=== PATIENT | male | born 1950 | race Caucasian/White ===

== ENCOUNTER 2019-08-26 14:19 | Emergency (ER) | payer OTHER ==
[~2019-08-26] VITALS: Wt 88.5 kg
[~2019-08-26 14:19] MED LIST: ALDACTONE25 MG PO; AMITRIPTYLINE10 MG PO; ASPIRIN ADULT L81 M1 PO; ATENOLOL100 M1 PO; B-1100 M1 PO; HYCODAN/HYDROMET5 ML PO; IBU800 MG PO; ISOSORBIDE DINI30 MG PO; LIPITOR80 MG PO; NORVASC10 MG PO; PRINIVIL20 M1 PO; PROAIR HFA8.5 GM INH; RANITIDINE HCL150 M1 PO; VITAMINS FOR HA1 CAP PO
[2019-08-26 14:44] LABS: BASO # 0.1 10*3/uL (0.0-0.1); BASO % 0.5 % (0.0-1.0); EOS # 0.2 10*3/uL (0.0-0.4); EOS % 2.1 % (1.0-4.0); HEMATOCRIT 38.8 % (42.0-52.0); HEMOGLOBIN 13.6 g/dl (14.0-18.0); LYMPH # 1.9 10*3/uL (1.3-4.4); LYMPH % 18.1 % (27.0-41.0); MEAN CELL VOLUME 105.4 fl (80.0-94.0); MEAN CORPUSCULAR HGB CONC 35.1 g/dl (33.0-37.0); MEAN PLATELET VOLUME 9.9 fl (9.6-12.3); MONO # 0.8 10*3/uL (0.1-1.0); MONO % 7.4 % (3.0-9.0); NEUT # 7.3 10*3/uL (2.3-7.9); NEUT % 71.4 % (47.0-73.0); PLATELET COUNT AUTOMATED 241 10*3/uL (130-400); RED BLOOD COUNT 3.68 10*6/uL (4.50-5.90); RED CELL DISTRI WIDTH 13.4 % (0-14.5); WHITE BLOOD COUNT 10.3 10*3/uL (4.8-10.8)
[2019-08-26 14:56] LABS: ACT PARTIAL THROMBO TIME 25.5 SECONDS (20.0-32.1); INTERNATIONAL NORM RATIO 0.9 (2.0-3.5)
[2019-08-26 15:02] LABS: ALBUMIN 3.2 gm/dl (3.1-4.5); ALKALINE PHOSPHATASE 96 U/L (45-117); BUN 17 mg/dl (7-24); CHLORIDE 107 mmol/L (98-107); CREATININE 1.24 mg/dL (0.70-1.30); POTASSIUM 3.8 mmol/L (3.5-5.1); SGOT/AST 34 IU/L (3-35); SGPT/ALT 41 U/L (12-78); SODIUM 141 mmol/L (136-145); TOTAL PROTEIN 6.4 gm/dL (6.4-8.2)
[2019-08-26 15:03] LABS: TROPONIN I < 0.015 ng/ml (<0.045)
== END 2019-08-26 16:51 | disposition left against medical advice (07) ==
LOC: ED 14:19
PROVIDERS: Emergency Medicine
DX: R55 Syncope and collapse (principal); R42 Dizziness and giddiness; R07.89 Other chest pain; I10 Essential (primary) hypertension; E78.5 Hyperlipidemia, unspecified; Z79.899 Other long term (current) drug therapy; Z79.82 Long term (current) use of aspirin

== ENCOUNTER 2020-12-02 11:13 | Emergency (ER) | payer OTHER ==
[~2020-12-02] VITALS: Ht 180.3 cm
[2020-12-02 11:46] LABS: HEMATOCRIT 37.2 % (42.0-52.0); MEAN CORPUSCULAR HGB 39.8 pg (27.0-31.0); MEAN CORPUSCULAR HGB CONC 35.5 g/dl (33.0-37.0); MEAN PLATELET VOLUME 10.3 fl (9.6-12.3); PLATELET COUNT AUTOMATED 236 10*3/uL (130-400); RED BLOOD COUNT 3.32 10*6/uL (4.50-5.90); RED CELL DISTRI WIDTH 13.2 % (0-14.5); WHITE BLOOD COUNT 6.9 10*3/uL (4.8-10.8)
[2020-12-02 12:07] LABS: BASOPHILS 1 % (0-1); PLATELET SUFFICIENCY NORMAL (NORMAL); TOTAL CELLS COUNTED 100 #CELLS
[2020-12-02 12:10] LABS: BUN 8 mg/dl (7-24); CHLORIDE 106 mmol/L (98-107); CREATININE 0.68 mg/dL (0.70-1.30); POTASSIUM 3.2 mmol/L (3.5-5.1); SODIUM 141 mmol/L (136-145)
[2020-12-02 12:11] LABS: ALBUMIN 2.5 gm/dl (3.1-4.5); ALKALINE PHOSPHATASE 142 U/L (45-117); ETHYL ALCOHOL < 3.0 mg/dl (<3); SGOT/AST 65 IU/L (3-35); SGPT/ALT 66 U/L (12-78); TROPONIN I 0.044 ng/ml (<0.045)
[2020-12-02 13:32] LABS: URINE AMPHETAMINES < 1000 (1000ng/ml); URINE BARBITURATES < 200 (200ng/ml); URINE BENZODIAZEPINES < 200 (200ng/ml); URINE CANNABINOIDS (THC) > 50 (50ng/ml); URINE COCAINE < 300 (300ng/ml); URINE METHADONE < 300 (300ng/ml); URINE OPIATES < 300 (300ng/ml)
[2020-12-02 13:36] LABS: URINE PHENCYCLIDINE < 25 (25ng/ml)
== END 2020-12-02 15:40 | disposition home or self-care (01) ==
LOC: ED 11:13
PROVIDERS: Family Medicine
DX: S02.85XA Fracture of orbit, unspecified, initial encounter for closed fracture (principal); R55 Syncope and collapse; Z79.899 Other long term (current) drug therapy; Z79.82 Long term (current) use of aspirin; Z95.1 Presence of aortocoronary bypass graft; X58.XXXA Exposure to other specified factors, initial encounter; Y93.89 Activity, other specified; Y92.89 Other specified places as the place of occurrence of the external cause; Y99.8 Other external cause status

== ENCOUNTER 2021-04-28 15:01 | Inpatient (IN) | payer OTHER ==
[~2021-04-28] VITALS: Ht 177.8 cm; Wt 73.2 kg
[~2021-04-28 15:01] MED LIST changes: -ELIQUIS5 M1 PO; -PANTOPRAZOLE SO40 MG PO
[2021-04-28 15:19] VITALS: BP 147/82
[2021-04-28 16:27] LABS: HEMATOCRIT 36.8 % (42.0-52.0); MEAN CELL VOLUME 109.5 fl (80.0-94.0); MEAN CORPUSCULAR HGB 37.2 pg (27.0-31.0); MEAN PLATELET VOLUME 11.1 fl (9.6-12.3); PLATELET COUNT AUTOMATED 170 10*3/uL (130-400); RED BLOOD COUNT 3.36 10*6/uL (4.50-5.90); RED CELL DISTRI WIDTH 14.2 % (0-14.5); WHITE BLOOD COUNT 7.6 10*3/uL (4.8-10.8)
[2021-04-28 16:45] LABS: ACT PARTIAL THROMBO TIME 28.7 SECONDS (20.0-32.1); INTERNATIONAL NORM RATIO 1.1 (2.0-3.5)
[2021-04-28 16:49] LABS: ALBUMIN 2.5 gm/dl (3.1-4.5); ALKALINE PHOSPHATASE 109 U/L (45-117); BUN 8 mg/dl (7-24); CHLORIDE 108 mmol/L (98-107); CREATININE 0.67 mg/dL (0.70-1.30); SGOT/AST 28 IU/L (3-35); SGPT/ALT 18 U/L (12-78); SODIUM 142 mmol/L (136-145); TOTAL PROTEIN 5.5 gm/dL (6.4-8.2)
[2021-04-28 17:07] LABS: BASOPHILS 1 % (0-1); PLATELET SUFFICIENCY NORMAL (NORMAL); TOTAL CELLS COUNTED 100 #CELLS
[2021-04-28 17:08] LABS: OVALOCYTES FEW
[2021-04-28 18:41] VITALS: BP 157/92
[2021-04-28] MEDS ORDERED: PANTOPRAZOLE SO40 MG PO (19:52)
[2021-04-28 22:32] VITALS: BP 133/92
[2021-04-29] VITALS: BP 134/59
[2021-04-29 08:00] VITALS: BP 122/86
[2021-04-29 08:11] LABS: HEMATOCRIT 37.1 % (42.0-52.0); MEAN CELL VOLUME 110.1 fl (80.0-94.0); MEAN CORPUSCULAR HGB 36.8 pg (27.0-31.0); MEAN CORPUSCULAR HGB CONC 33.4 g/dl (33.0-37.0); MEAN PLATELET VOLUME 11.2 fl (9.6-12.3); PLATELET COUNT AUTOMATED 160 10*3/uL (130-400); RED BLOOD COUNT 3.37 10*6/uL (4.50-5.90); RED CELL DISTRI WIDTH 14.2 % (0-14.5); WHITE BLOOD COUNT 5.6 10*3/uL (4.8-10.8)
[2021-04-29 08:25] LABS: ALBUMIN 2.4 gm/dl (3.1-4.5); ALKALINE PHOSPHATASE 103 U/L (45-117); BUN 6 mg/dl (7-24); CHLORIDE 107 mmol/L (98-107); CREATININE 0.61 mg/dL (0.70-1.30); FREE T4 1.14 ng/dl (0.76-1.46); POTASSIUM 3.5 mmol/L (3.5-5.1); SGOT/AST 21 IU/L (3-35); SGPT/ALT 15 U/L (12-78); SODIUM 142 mmol/L (136-145); TOTAL PROTEIN 5.2 gm/dL (6.4-8.2)
[2021-04-29 08:28] LABS: BASOPHILS 1 % (0-1); OVALOCYTES FEW; PLATELET SUFFICIENCY NORMAL (NORMAL); SCHISTOCYTES FEW; TOTAL CELLS COUNTED 100 #CELLS
[2021-04-29 08:32] LABS: THYROID STIM HORMONE (HS) 0.871 uIU/ml (0.358-4.75)
[2021-04-29 12:00] VITALS: BP 117/74
[2021-04-29] MEDS ORDERED: ELIQUIS5 M1 PO (12:31)
== END 2021-04-29 13:15 | disposition home or self-care (01) | DRG 299 ==
LOC: ED 15:01 → EDHOLD 18:38 → 4E 20:27
PROVIDERS: Emergency Medicine; Physical Therapist; ADMIT Student in an Organized Health Care Education/Training Program; ATTEND Student in an Organized Health Care Education/Training Program
DX: I82.432 Acute embolism and thrombosis of left popliteal vein (principal); E43 Unspecified severe protein-calorie malnutrition; Z20.822 Contact with and (suspected) exposure to COVID-19; E78.5 Hyperlipidemia, unspecified; D53.9 Nutritional anemia, unspecified; R00.1 Bradycardia, unspecified; E87.8 Other disorders of electrolyte and fluid balance, not elsewhere classified; M54.9 Dorsalgia, unspecified; I25.10 Atherosclerotic heart disease of native coronary artery without angina pectoris; F17.210 Nicotine dependence, cigarettes, uncomplicated; I10 Essential (primary) hypertension; Z95.1 Presence of aortocoronary bypass graft; Z82.49 Family history of ischemic heart disease and other diseases of the circulatory system; Z79.82 Long term (current) use of aspirin; Z71.6 Tobacco abuse counseling; Z79.899 Other long term (current) drug therapy; Z68.23 Body mass index [BMI] 23.0-23.9, adult

== ENCOUNTER → 2021-04-28 | Outpatient (CLI) | payer OTHER ==
[~2021-04-28] MED LIST changes: +ELIQUIS5 M1 PO; +PANTOPRAZOLE SO40 MG PO
[2021-04-28 13:51] LABS: CREATININE 0.74 mg/dL (0.70-1.30)
== END | disposition home or self-care (01) ==
LOC: LAB 13:21 → MRI 14:00
PROVIDERS: Radiology Diagnostic Radiology; ATTEND Family Medicine
DX: K86.2 Cyst of pancreas (principal); K31.89 Other diseases of stomach and duodenum; K86.89 Other specified diseases of pancreas; R63.4 Abnormal weight loss; R63.0 Anorexia; R13.10 Dysphagia, unspecified

== ENCOUNTER → 2021-05-01 | Outpatient (CLI) | payer OTHER ==
[~2021-05-01] MED LIST changes: +ELIQUIS5 M1 PO; +PANTOPRAZOLE SO40 MG PO
== END | disposition home or self-care (01) ==
LOC: CT 00:03
PROVIDERS: ATTEND Family Medicine
DX: Z12.2 Encounter for screening for malignant neoplasm of respiratory organs (principal); J84.10 Pulmonary fibrosis, unspecified; J92.9 Pleural plaque without asbestos; K86.9 Disease of pancreas, unspecified

== ENCOUNTER 2022-05-07 16:16 | Inpatient (IN) | payer OTHER ==
[~2022-05-07] VITALS: Ht 177.8 cm; Wt 68.1 kg
[2022-05-07 16:16] VITALS: BP 97/53
[2022-05-07 16:56] LABS: BASO # 0.1 10*3/uL (0.0-0.1); BASO % 0.6 % (0.0-1.0); EOS # 0.2 10*3/uL (0.0-0.4); EOS % 2.3 % (1.0-4.0); HEMATOCRIT 32.5 % (42.0-52.0); LYMPH # 1.9 10*3/uL (1.3-4.4); LYMPH % 18.3 % (27.0-41.0); MEAN CELL VOLUME 87.4 fl (80.0-94.0); MEAN CORPUSCULAR HGB 27.7 pg (27.0-31.0); MEAN CORPUSCULAR HGB CONC 31.7 g/dl (33.0-37.0); MEAN PLATELET VOLUME 11.7 fl (9.6-12.3); MONO # 0.9 10*3/uL (0.1-1.0); MONO % 8.2 % (3.0-9.0); NEUT # 7.4 10*3/uL (2.3-7.9); NEUT % 70.2 % (47.0-73.0); PLATELET COUNT AUTOMATED 320 10*3/uL (130-400); RED BLOOD COUNT 3.72 10*6/uL (4.50-5.90); RED CELL DISTRI WIDTH 18.1 % (0-14.5); WHITE BLOOD COUNT 10.6 10*3/uL (4.8-10.8)
[2022-05-07 17:10] LABS: ACT PARTIAL THROMBO TIME 25.4 SECONDS (20.0-32.1)
[2022-05-07 17:14] LABS: ALKALINE PHOSPHATASE 93 U/L (45-117); BUN 16 mg/dl (7-24); CHLORIDE 110 mmol/L (98-107); CPK 56 U/L (39-308); CREATININE 0.94 mg/dL (0.70-1.30); POTASSIUM 4.2 mmol/L (3.5-5.1); SGOT/AST 11 IU/L (3-35); SGPT/ALT 15 U/L (12-78); SODIUM 141 mmol/L (136-145); TOTAL PROTEIN 6.4 gm/dL (6.4-8.2)
[2022-05-07 18:01] VITALS: BP 110/60
[2022-05-07 18:49] VITALS: BP 112/63
[2022-05-07 20:00] VITALS: BP 114/65
[2022-05-07 20:35] VITALS: BP 135/81
[2022-05-08] VITALS: BP 114/71; BP 115/64
[2022-05-08 07:06] LABS: BASO # 0.1 10*3/uL (0.0-0.1); EOS # 0.5 10*3/uL (0.0-0.4); EOS % 6.8 % (1.0-4.0); HEMATOCRIT 29.8 % (42.0-52.0); LYMPH # 3.4 10*3/uL (1.3-4.4); LYMPH % 43.5 % (27.0-41.0); MEAN CELL VOLUME 87.4 fl (80.0-94.0); MEAN CORPUSCULAR HGB 27.9 pg (27.0-31.0); MEAN CORPUSCULAR HGB CONC 31.9 g/dl (33.0-37.0); MEAN PLATELET VOLUME 11.7 fl (9.6-12.3); MONO # 0.8 10*3/uL (0.1-1.0); MONO % 10.6 % (3.0-9.0); NEUT % 37.8 % (47.0-73.0); PLATELET COUNT AUTOMATED 314 10*3/uL (130-400); RED BLOOD COUNT 3.41 10*6/uL (4.50-5.90); WHITE BLOOD COUNT 7.9 10*3/uL (4.8-10.8)
[2022-05-08 07:28] LABS: BUN 16 mg/dl (7-24); CHLORIDE 113 mmol/L (98-107); POTASSIUM 3.7 mmol/L (3.5-5.1); SODIUM 144 mmol/L (136-145)
[2022-05-08 07:38] LABS: ALKALINE PHOSPHATASE 81 U/L (45-117); CHOLESTEROL 168 mg/dL (<200); CREATININE 0.72 mg/dL (0.70-1.30); LDL CHOLESTEROL 93 mg/dL (9-159); SGOT/AST 10 IU/L (3-35); SGPT/ALT 12 U/L (12-78); THYROID STIM HORMONE (HS) 0.568 uIU/ml (0.358-4.75); TOTAL PROTEIN 5.6 gm/dL (6.4-8.2); TRIGLYCERIDES 96 mg/dl (<150)
[2022-05-08 08:00] VITALS: BP 120/70
[2022-05-08 12:00] VITALS: BP 124/71
[2022-05-08 16:00] VITALS: BP 107/50
[2022-05-08 20:00] VITALS: BP 115/69
[2022-05-08 21:30] LABS: BILIRUBIN Negative (Negative); BLOOD Negative (Negative); CLARITY Clear (Clear); COLOR Yellow (Yellow); GLUCOSE Negative (Negative); KETONE Negative (Negative); LEUKO ESTERASE Negative (Negative); NITRITE Negative (Negative); SPECIFIC GRAVITY 1.015 (1.001-1.030); UROBILINOGEN 0.2 E.U./dl (0.0-1.0)
[2022-05-08 22:24] LABS: BACTERIA TRACE; RBC 0-2 rbc/hpf (0-2)
[2022-05-09] VITALS: BP 129/73
[2022-05-09 08:00] VITALS: BP 124/72
[2022-05-09] MEDS ORDERED: BUSPAR5 MG PO (10:34)
[2022-05-09] MEDS ORDERED: Ipratropium Brom3 ML INH (10:35)
[2022-05-09] MEDS ORDERED: OLANZAPINE10 MG PO (10:36)
[2022-05-09] MEDS ORDERED: DIGOXIN125 MCG PO (10:36)
[2022-05-09] MEDS ORDERED: AMIODARONE HYD200 MG PO (10:36)
[2022-05-09] MEDS ORDERED: LASIX20 MG PO (10:37)
[2022-05-09] MEDS ORDERED: Lopressor25 MG PO (10:37)
[2022-05-09] MEDS ORDERED: ELIQUIS5 M1 PO (10:37)
[2022-05-09 12:00] VITALS: BP 133/75
[2022-05-09] MEDS ORDERED: METHIMAZOLE5 M1 PO (12:04)
[2022-05-09] MEDS ORDERED: TOPROL XL25 MG PO (12:04)
[2022-05-09] MEDS ORDERED: ZESTRIL,PRINIVIL5 MG PO (12:04)
== END 2022-05-09 15:45 | disposition home or self-care (01) | DRG 312 ==
LOC: ED 16:16 → EDHOLD 17:50 → 5E 17:50
PROVIDERS: Emergency Medicine; Internal Medicine; ADMIT Emergency Medicine; ATTEND Emergency Medicine
DX: I95.1 Orthostatic hypotension (principal); E87.20 Acidosis, unspecified; E44.0 Moderate protein-calorie malnutrition; I48.0 Paroxysmal atrial fibrillation; I25.10 Atherosclerotic heart disease of native coronary artery without angina pectoris; I73.9 Peripheral vascular disease, unspecified; D64.9 Anemia, unspecified; R73.9 Hyperglycemia, unspecified; I10 Essential (primary) hypertension; F17.210 Nicotine dependence, cigarettes, uncomplicated; E05.90 Thyrotoxicosis, unspecified without thyrotoxic crisis or storm; Z95.1 Presence of aortocoronary bypass graft; Z93.0 Tracheostomy status; Z86.718 Personal history of other venous thrombosis and embolism; Z82.49 Family history of ischemic heart disease and other diseases of the circulatory system; Z68.21 Body mass index [BMI] 21.0-21.9, adult